=== PATIENT | female | born 1945 | race African-American/Black ===

== ENCOUNTER 2017-12-07 11:58 | Emergency (ER) | payer MEDICARE ==
[2017-12-07] MEDS ORDERED: Adacel (T-DAP) 0.5 ML VIAL ONE (13:09)
[2017-12-07] MEDS ORDERED: HYDROcodone/Acetaminophen 5/325 mg Tablet ONE (13:09)
--- NOTE | 2017-12-07 15:11 | CT ---
CT HEAD WITHOUT CONTRAST: Multiple axial tomograms were obtained through the head without IV enhancement. INDICATION: Fall with injury to head. FINDINGS: Ventricles have normal size and position. No evidence of intracranial hemorrhage or infarct. No mas s or edema seen. Sinuses and mastoids are well aerated. IMPRESSION: No evidence of acute process. POS: [facility]
== END 2017-12-07 14:10 | disposition home or self-care (01) ==
LOC: ERS 11:58
DX: S01.81XA Laceration without foreign body of other part of head, initial encounter (principal); S00.511A Abrasion of lip, initial encounter; E11.9 Type 2 diabetes mellitus without complications; Z79.899 Other long term (current) drug therapy; Z79.84 Long term (current) use of oral hypoglycemic drugs; Z23 Encounter for immunization; W01.0XXA Fall on same level from slipping, tripping and stumbling without subsequent striking against object, initial encounter; Y92.22 Religious institution as the place of occurrence of the external cause
CPT/HCPCS: 12001; 70450; 90471; 90715

== ENCOUNTER 2017-12-31 08:10 | Outpatient (CLI) | payer MEDICARE, OTHER | END 2017-12-31 08:11 | disposition home or self-care (01) | LOC: BICMRI 08:10 | PROVIDERS: ATTEND Family Medicine | DX: R20.0 Anesthesia of skin (principal); R20.2 Paresthesia of skin; M47.896 Other spondylosis, lumbar region; M48.061 Spinal stenosis, lumbar region without neurogenic claudication; M99.83 Other biomechanical lesions of lumbar region | CPT/HCPCS: 72148 ==